=== PATIENT | male | born 1960 | race African-American/Black ===

== ENCOUNTER 2016-09-21 19:10 | Emergency (ER) | payer MEDICAID, OTHER ==
[~2016-09-21] VITALS: Ht 172.7 cm; Wt 68.0 kg
[2016-09-21 19:18] VITALS: BP 121/81
== END 2016-09-21 23:39 | disposition left against medical advice (07) ==
LOC: ER 19:10
DX: S71.112A Laceration without foreign body, left thigh, initial encounter (principal); Z53.21 Procedure and treatment not carried out due to patient leaving prior to being seen by health care provider; W26.9XXA Contact with unspecified sharp object(s), initial encounter; Y93.89 Activity, other specified; Y99.8 Other external cause status; Y92.89 Other specified places as the place of occurrence of the external cause